=== PATIENT | male | born 1960 | race African-American/Black ===

== ENCOUNTER 2019-12-06 10:47 | Emergency (ER) | payer SELFPAY ==
[2019-12-06] MEDS ORDERED: ACETAMINOPHEN 325 MG TAB PO ONE (11:24)
[2019-12-06] MEDS ORDERED: TETANUS,DIPH,PERTUSS(ACELL) VACCINE 0.5 ML SYRINGE IM ONE (11:25)
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
[2019-12-06] MEDS ORDERED: LET TOPICAL (LIDOCAINE/EPINEPHRINE/TETRACAINE) 3 ML TP ONE (13:04)
[2019-12-06] MEDS ORDERED: NEOMY 3.5 MG/BACIT 400 UNITS/POLY B 5000 UNITS/GM OINT PACKET TP ONE (13:04)
[2019-12-06] MEDS ORDERED: OXYMETAZOLINE 0.05% NASAL SPRAY NS ONE (13:05)
[2019-12-06] MEDS ORDERED: SODIUM CHLORIDE 0.9% IRR 500 ML BOTTLE IR ONE (13:15)
[2019-12-06 13:24] VITALS: BP 138/77
[2019-12-06] MEDS ORDERED: cephALEXin 500 MG CAP PO ONE (13:24)
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
== END 2019-12-06 14:17 | disposition home or self-care (01) ==
LOC: ED 10:47
DX: S02.2XXA Fracture of nasal bones, initial encounter for closed fracture (principal); S01.21XA Laceration without foreign body of nose, initial encounter; E11.9 Type 2 diabetes mellitus without complications; Z98.890 Other specified postprocedural states; Y04.0XXA Assault by unarmed brawl or fight, initial encounter; Y93.89 Activity, other specified; Y92.89 Other specified places as the place of occurrence of the external cause; Y99.8 Other external cause status
CPT/HCPCS: 70450; 70486; 71045; 72125; 82962; 90471; 90715; A6250

== ENCOUNTER 2019-12-13 11:38 | Emergency (ER) | payer SELFPAY ==
[2019-12-13 12:21] VITALS: BP 127/64
--- NOTE | 2019-12-13 18:27 | Emergency Department Report ---
Suture/Staple Removal - HPI Chief Complaint: Laceration/Recheck/Suture Stated Complaint: REMOVAL OF STITCHS ON NOSE When Sutures or [place] Placed: 5-7 Days Ago Wound Location: nose ED Review of Systems ROS: Stated complaint: REMOVAL OF STITCHS ON NOSE Other details as noted in HPI Comment: All other systems reviewed and negative Constitutional: denies: chills, fever ENT: denies: ear pain, throat pain Endocrine: denies: excessive sweating, intolerance to heat ED Past Medical Hx - Past Medical History Previous Medical History?: Yes Hx Diabetes: Yes (type 2) - Surgical History Past Surgical History?: No Additional Surgical History: EYE SURGERY - Social History Smoking Status: Never Smoker Substance Use Type: None - Medications Home Medications: Home Medications Medication Instructions Recorded Confirmed Last Taken Type Acetaminophen [Acetaminophen TAB] 500 mg PO Q4HR PRN #14 tablet 12/06/19 Unknown Rx Loratadine [Claritin] 10 mg PO DAILY #14 tablet 12/06/19 Unknown Rx cephALEXin [Keflex] 500 mg PO Q12HR #14 cap 12/06/19 Unknown Rx Suture Removal Exam - Exam General: Vital signs noted. No distress. Alert and acting appropriately. Wound: No Pathologic Erythema, No Tenderness, No Drainage, No Pus, No Wound Dehiscence Other Systems: All other systems reviewed and are unremarkable. ED Course Vital Signs 12/13/19 12:20 Temperature 99.2 F Pulse Rate 74 Respiratory 13 Rate Blood Pressure 127/64 [Left] O2 Sat by Pulse 97 Oximetry ED Recheck MDM - Differential Diagnosis Wound Recheck - Medical Decision Making 59-year-old male had stitches placed to his nose 7 days ago. Today patient presents for wound recheck and suture removal. On examination there is no acute findings of infection is no redness swelling just appropriate tenderness. Th ere are no sutures visible. Patient states they may have come out while he washed his face. Patient in no distress wound is healing well edges are well approximated sutures visible Critical Care Time: No Critical care attestation.: If time is entered above; I have spent that time in minutes in the direct care of this critically ill patient, excluding procedure time. ED Disposition Clinical Impression: Encounter for wound re-check Disposition: TO HOME OR SELFCARE Is pt being admited?: No Does the pt Need Aspirin: No Condition: Stable Additional Instructions: Wash area, keep clean and dry. Follow up with PCP. Referrals: MARCK PUENTE MD [Primary Care Provider] - 3-5 Days Time of Disposition: 18:31
== END 2019-12-13 14:48 | disposition home or self-care (01) ==
LOC: ED 11:38
DX: S01.21XD Laceration without foreign body of nose, subsequent encounter (principal); E11.9 Type 2 diabetes mellitus without complications; Z98.890 Other specified postprocedural states; X58.XXXD Exposure to other specified factors, subsequent encounter